=== PATIENT | female | born 1975 ===

== ENCOUNTER 2018-03-17 01:05 | Emergency (ER) | payer OTHER ==
[2018-03-17] MEDS ORDERED: Iohexol 240 (50 ml) PO ONE (01:36)
[2018-03-17] MEDS ORDERED: Sodium Chloride 0.9% 1,000 ML IV ONE ×2 (01:37→10:38)
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
[2018-03-17] MEDS ORDERED: Iohexol 240 (50 ml) ONE (01:44)
[2018-03-17] MEDS ORDERED: Sodium Chloride 0.9% 1,000 ML ONE ×2 (01:44→10:41)
[2018-03-17 01:48] LABS: BASO # 0.1 K/uL (0.0-0.2); BASO % 0.8 % (0.0-2.0); EOS # 0.1 K/uL (0.0-0.7); EOS % 1.4 % (0.0-4.0); HEMOGLOBIN 10.4 g/dL (11.0-16.0); LYMPH # 2.6 K/uL (1.0-4.3); LYMPH % 37.1 % (20.0-40.0); MEAN CELL VOLUME 80.2 fL (81.0-99.0); MEAN CORPUSCULAR HEMOGLOBIN 25.8 pg (27.0-31.0); MEAN CORPUSCULAR HGB CONC 32.2 g/dL (33.0-37.0); MEAN PLATELET VOLUME 7.6 fL (7.2-11.7); MONO # 0.5 K/uL (0.0-0.8); MONO % 7.2 % (0.0-10.0); NEUT # 3.7 K/uL (1.8-7.0); NEUT % 53.5 % (50.0-75.0); RBC 4.01 Mil/uL (3.80-5.20); RED CELL DISTRIBUTION WIDTH 22.1 % (11.5-14.5)
[2018-03-17 01:56] LABS: HCG,QUALITATIVE URINE NEGATIVE (NEGATIVE); SQUAMOUS EPITHIAL 2 /hpf (0-5); URINE BACTERIA RARE (<OCC); URINE BILIRUBIN NEGATIVE (NEGATIVE); URINE BLOOD 1+ (NEGATIVE); URINE CLARITY Clear (Clear); URINE COLOR Yellow (YELLOW); URINE GLUCOSE (UA) NORMAL (Normal); URINE LEUKOCYTE ESTERASE NEG Leu/uL (Negative); URINE PROTEIN NEGATIVE (NEGATIVE); URINE UROBILINOGEN NORMAL mg/dL (0.2-1.0)
[2018-03-17 02:00] LABS: ALB/GLOB RATIO 1.2 (1.0-2.1); ALBUMIN 4.7 g/dL (3.5-5.0); ALT/SGPT 73 U/L (9-52); AST/SGOT 127 U/L (14-36); BLOOD UREA NITROGEN 10 mg/dL (7-17); CALCIUM 8.4 mg/dl (8.6-10.4); GFR AFRICAN-AMERICAN > 60; GFR NON-AFRICAN AMERICAN > 60; LIPASE 138 U/L (23-300)
[2018-03-17 02:03] LABS: BARBITURATES, UR NEGATIVE (NEGATIVE); BENZODIAZEPINES, UR NEGATIVE (NEGATIVE); OPIATES, UR NEGATIVE (NEGATIVE); PHENCYCLIDINE, UR NEGATIVE (NEGATIVE)
[2018-03-17] MEDS ORDERED: Iodixanol 320 MG/ML 100 ML BOTTLE IV ONE (03:40)
[2018-03-17] MEDS ORDERED: Sodium Chloride 0.9% 500 ML IV ONE (04:14)
[2018-03-17 06:41] LABS: BLOOD UREA NITROGEN 7 mg/dL (7-17); CALCIUM 7.4 mg/dl (8.6-10.4); GFR AFRICAN-AMERICAN > 60; GFR NON-AFRICAN AMERICAN > 60
--- NOTE | 2018-03-17 15:24 | CT ---
Date of service: 03/17/2018 PROCEDURE: CT Abdomen and Pelvis with contrast HISTORY: Abd pain/ tenderness RLQ COMPARISON: None. TECHNIQUE: Following oral and intravenous contrast administration, a CT examination of the abdomen and pelvis performed from the domes of the diaphragms to the symphysis pubis with reformatted datasets provided not only axial but also sagittal and coronal series. Contrast dose: Visipaque 320, 100 cc Radiation dose: Total exam DLP = 421.31 mGy-cm. This CT exam was performed using one or more of the following dose reduction techniques: Automated exposure control, adjustment of the mA and/or kV according to patient size, and/or use of iterative reconstruction technique. FINDINGS: LOWER THORAX: Unremarkable. LIVER: Prominent diminished attenuation throughout the liver suggests extensive hepatic steatosis without focal lesion or intrahepatic biliary dilatation grossly evident. GALLBLADDER AND BILE DUCTS: Prior cholecystectomy. The common duct appears mildly prominent, which is likely related measuring 7.5 mm at its proximal to mid segments taper to a normal caliber. No radiodense choledocholithiasis appreciable. PANCREAS: Unremarkable. No gross lesion or ductal dilatation. SPLEEN: Unremarkable. ADRENALS: Unremarkable. No mass. KIDNEYS AND URETERS: No obstructive uropathy bilaterally. Intrarenal calculus noted at the upper pole left kidney, nonobstructive. VASCULATURE: Unremarkable. No aortic aneurysm. BOWEL: Evidence of gastric bypass surgery with the stomach collapsed at this time. No bowel obstruction identified. The volume oral contrast ingested is limited compromising evaluation of the bowel. APPENDIX: Normal appendix. PERITONEUM: Unremarkable. No free fluid. No free air. LYMPH NODES: Unremarkable. No enlarged lymph nodes. BLADDER: Unremarkable. REPRODUCTIVE: Unremarkable. BONES: No acute fracture. OTHER FINDINGS: None. IMPRESSION: 1. Normal appearing appendix. 2. Hepatic steatosis diffusely noted. 3. Prior cholecystectomy with likely related dilatation of the common bile duct. No radiodense choledocholithiasis identified at this time. 4. Intrarenal calculus is nonobstructive upper pole left kidney. Concordant preliminary report from [facility], 03/17/2018.
[2018-03-17] MEDS ORDERED: Emtricitabine-Tenofovir 200 mg-300 mg Tab PO STA (17:41)
[2018-03-17] MEDS ORDERED: cefTRIAXone (Rocephin) 250 mg Inj IM STA (17:41)
[2018-03-17] MEDS ORDERED: Emtricitabine-Tenofovir 200 mg-300 mg Tab PO NR (17:45)
[2018-03-17 18:24] VITALS: BP 127/87; PULSE 76; RESP 16; TEMP 98.9; O2SAT 98
== END 2018-03-17 18:27 | disposition home or self-care (01) ==
LOC: SUPCPDRO 01:05 → C.ER 01:05 → EDBD 01:05 → MERGE 01:05 → C.ER 18:27
DX: F10.129 Alcohol abuse with intoxication, unspecified (principal); Y90.8 Blood alcohol level of 240 mg/100 ml or more; T14.8XXA Other injury of unspecified body region, initial encounter; T76.21XA Adult sexual abuse, suspected, initial encounter; Y92.9 Unspecified place or not applicable
CPT/HCPCS: 74177; 80048; 80053; 80320; 80324; 80345; 80346; 80349; 80353; 80358; 80361; 81001; 82948; 83690; 83992; 84703; 85025; 87086; 96360; 96372; 99285; J0696; J7030; Q9966; Q9967